=== PATIENT | male | born 1965 | race Caucasian/White ===

== ENCOUNTER → 2021-04-06 | Outpatient (CLI) | payer OTHER ==
[2021-04-06 13:58] LABS: CREATININE 0.91 mg/dL (0.70-1.30)
== END | disposition home or self-care (01) ==
LOC: LAB 12:40
PROVIDERS: ATTEND Family Medicine
DX: G44.84 Primary exertional headache (principal)

== ENCOUNTER → 2021-04-08 | Outpatient (CLI) | payer OTHER | END | disposition home or self-care (01) | LOC: CT 00:45 | PROVIDERS: ATTEND Family Medicine | DX: G44.84 Primary exertional headache (principal) ==

== ENCOUNTER → 2021-07-09 | Outpatient (CLI) | payer OTHER ==
[2021-07-09 08:24] LABS: CREATININE 1.03 mg/dL (0.70-1.30)
== END | disposition home or self-care (01) ==
LOC: CT 07-08 08:00 → LAB 08:00 → CT 09:00
PROVIDERS: ATTEND Family Medicine
DX: G44.84 Primary exertional headache (principal)